=== PATIENT | female | born 1975 | race African-American/Black ===

== ENCOUNTER 2017-10-11 18:37 | Emergency (ER) | payer OTHER ==
[~2017-10-11] VITALS: Ht 165.1 cm; Wt 99.3 kg
[2017-10-11] MEDS ORDERED: COZAAR 50 MG TA50 M2 PO (18:49)
[2017-10-11] MEDS ORDERED: MOBIC7.5 MG PO (19:57)
[2017-10-11 20:36] VITALS: BP 122/75
== END 2017-10-11 20:38 | disposition home or self-care (01) ==
LOC: M.ERS 18:37
DX: M25.562 Pain in left knee (principal); M25.572 Pain in left ankle and joints of left foot; M25.522 Pain in left elbow; I10 Essential (primary) hypertension; Z88.0 Allergy status to penicillin; W01.0XXA Fall on same level from slipping, tripping and stumbling without subsequent striking against object, initial encounter; Y93.89 Activity, other specified; Y92.89 Other specified places as the place of occurrence of the external cause; Y99.8 Other external cause status